=== PATIENT | female | born 1955 | race Caucasian/White ===

== ENCOUNTER 2023-09-21 12:58 | Outpatient (CLI) | payer MEDICARE, BC ==
--- NOTE | 2023-09-23 07:55 | Mammography Report ---
BILATERAL DIGITAL SCREENING MAMMOGRAM 3D/2D: 09/21/2023 CLINICAL: Routine screening. Comparison is made to exams dated: 05/19/2022 mammogram, 07/10/2020 mammogram, and 03/17/2017 mammogram - [facility]. Both breasts are heterogeneously dense, which may obscure small masses (category c / 51-75% glandular tissue). No significant masses, calcifications, or other findings are seen in either breast. There has been no significant interval change. IMPRESSION: NEGATIVE There is no mammographic evidence of malignancy. A 1 year screening mammogram is recommended. Based on the Tyrer Cuzick model (a risk assessment model) the patient's lifetime risk is 8.8% and her 10 year risk is 5.2%. According to the ACR, ACS, and NCCN guidelines, an annual breast MRI exam kendra g with mammogram is recommended if the patient's lifetime risk is 20% or greater. This exam was interpreted at Station ID: [id number]. NOTE: For mammograms, a report in lay terms will be sent to the patient. Approximately 15% of breast malignancies will not be visualized mammographically. In the management of a palpable breast mass, a negative mammogram must not discourage biopsy of a clinically suspicious lesion. Electronically Signed By: Carlos chamorro/lars:09/22/2023 14:24:30 letter sent: No_Letter ACR BI-RADS Category 1: Negative 3341F PARENCHYMAL PATTERN: (D) - The breast(s) demonstrate(s) heterogeneously dense fibroglandular beto menchaca. BI-RADS CATEGORY: (1) - 1 RECOMMENDATION: (ANNUAL) - Recommend routine annual screening mammography. [id number] 1 year screening LATERALITY: (B)
== END 2023-09-21 12:59 | disposition home or self-care (01) ==
LOC: DI.S 12:58
DX: Z12.31 Encounter for screening mammogram for malignant neoplasm of breast (principal); R92.333 Mammographic heterogeneous density, bilateral breasts

== ENCOUNTER 2023-10-08 12:34 | Outpatient (CLI) | payer MEDICARE, BC ==
--- NOTE | 2023-10-08 14:07 | DEXA Report ---
PROCEDURE: Dexa Spine and/or Hip INDICATIONS: OSTEOPOROSIS TECHNIQUE: Dual energy x-ray absorptiometry (DEXA) was performed in the regions detailed below. COMPARISON: None. FINDINGS: Lumbar Spine: Bone Mineral Density 0.879 g/cm/cm,T score -2.5. Osteoporosis Left Femoral Neck: Bone Mineral Density 0.712 g/cm/cm, T score -2.3. Osteopenia Left Total Hip: Bone Mineral Density 0.780 g/cm/cm,T score -1.8. Osteopenia (T score greater or equal to -1.0: NORMAL) (T score from -1.1 to -2.4: OSTEOPENIA) (T score less than or equal to -2.5 to: OSTEOPOROSIS) IMPRESSION: Osteoporosis Patients with diagnosis of osteoporosis or osteopenia should have regular bone mineral density assess ment. For those eligible for Medicare, routine testing is allowed once every 2 years. Testing frequ ency can be increased for patients who have rapidly progressing disease or for those who are receivin g medical therapy to restore bone mass. Reviewed by: Rogers Vang MD on 10/08/2023 1:05 PM STANISLAV Approved by: Rogers Vang MD on 10/08/2023 1:05 PM STANISLAV Station ID: [id number]
== END 2023-10-08 12:35 | disposition home or self-care (01) ==
LOC: DI 12:34
PROVIDERS: ATTEND Family Medicine
DX: M81.0 Age-related osteoporosis without current pathological fracture (principal)

== ENCOUNTER 2023-10-27 15:07 | Emergency (ER) | payer MEDICARE, BC ==
--- NOTE | 2023-10-27 16:27 | ED Physician Documentation ---
History of Present Illness - Stated complaint Stated Complaint: BAT EXPOSURE/POSS BAT BITE - Chief complaint Chief Complaint: General - History obtained from History obtained from: Patient - History of Present Illness Timing: Today Pain level max: 0 Pain level now: 0 - Additonal information Additional information: Patient is a 68-year-old female who states that yesterday she awoke with a bat in her bedroom. It flew out the window. She is unsure if she was bit or not. She contacted [facility] who recommended she come here for rabies vaccine and rabies immunoglobulin. Patient is asymptomatic. 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 : None HEENT: None Psych: Anxiety Musculoskeletal: Osteoarthritis, Chronic back pain Derm: None - Past Surgical History Past Surgical History: Yes /CELLARS SUPERVISOR: Dilation and currettage HEENT: Tonsil/Adenoidectomy - Present Medications Home Medications: Ambulatory Orders Medication Instructions Recorded Confirmed Levothyroxine Sodium 75 mcg PO DAILY 10/27/23 Liothyronine [Cytomel] 5 mcg PO DAILY 10/27/23 - Allergies Allergies/Adverse Reactions: Allergies Allergy/AdvReac Type Severity Reaction Status Date / Time codeine AdvReac Nausea Verified 10/27/23 15:17 morphine AdvReac Nausea Verified 10/27/23 15:17 - Social History Does the pt smoke?: No Smoking Status: Never smoker Does the pt drink ETOH?: Yes Does the pt have substance abuse?: No - Immunizations Immunizations are current?: Yes - POLST Patient has POLST: No PD ED PE NORMAL - Vitals Vital signs reviewed: Yes - General General: Alert and oriented X 3, No acute distress - HEENT HEENT: Moist mucous membranes - Neck Neck: Supple, no meningeal sign - Cardiac Cardiac: RRR - Respiratory Respiratory: No respiratory distress, Clear bilaterally - Derm Derm: Warm and dry - Neuro Neuro: Alert and oriented X 3 Results - Vitals Vitals: Vital Signs - 24 hr 10/27/23 10/27/23 15:17 15:51 Temperature 36.7 C Heart Rate 72 Respiratory 16 16 Rate Blood Pressure 114/59 L O2 Saturation 98 Oxygen O2 Source Room air PD Medical Decision Making - ED course Complexity details: considered differential, d/w patient ED course: Patient with a bat exposure, recommended rabies vaccination by [facility]. Therefore immunoglobulin and the vaccine series was started. Patient will follow-up with her PCP for the remainder of the series. Information given about this. She will return to the ER if she is unable to get follow-up with her doctor. Patient counseled regarding signs and symptoms for which I believe and urgent re-evaluation would be necessary. Patient with good understanding of and agreement to plan and is comfortable going home at this time This document was made in part using voice recognition software. While efforts are made to proofread this document, sound alike and grammatical errors may occur. Departure - Departure Disposition: 01 Home, Self Care Clinical Impression: Exposure to bat without known bite Condition: Good Instructions: Rabies Vaccine Series Instructions Follow-Up: Johana Clay MD [Primary Care Provider] - Comments: Please follow-up with your doctor for further care. As we discussed you were given rabies immunoglobulin and your first rabies vaccination today. You will need additional vaccines on day 3, day 7 and day 14. I have provided instructions on how to arrange this. The location of the next vaccinations will depend on your insurance and insurance benefits, this may be covered under a pharmacy benefit or a medical benefit. Forms: PCP List
[2023-10-27] MEDS: RABIES IMMUNE GLOBULIN 300 UNITS/2 ML IM STA (16:34)
[2023-10-27] MEDS: RABIES VACCINE 2.5 UNIT SYRINGE IM ONE (16:35)
[2023-10-27 17:03] VITALS: BP 151/88; O2SAT 100
== END 2023-10-27 17:12 | disposition home or self-care (01) ==
LOC: ED 15:07
DX: Z20.3 Contact with and (suspected) exposure to rabies (principal); Z23 Encounter for immunization; E03.9 Hypothyroidism, unspecified
CPT/HCPCS: 90471; 96372; 99283

== ENCOUNTER 2023-11-03 13:10 | Emergency (ER) | payer MEDICARE, BC ==
[2023-11-03 13:26] VITALS: BP 138/77; O2SAT 100
--- NOTE | 2023-11-03 13:28 | ED Physician Documentation ---
History of Present Illness - Stated complaint Stated Complaint: RABIES VACCINE - Chief complaint Chief Complaint: General - History obtained from History obtained from: Patient - Additonal information Additional information: The patient returns to the ED for her day 7 rabies vaccine dose after a bat exposure a week ago. She states other than a sore arm she has not noticed any unusual symptoms and otherwise feels fine. She states she was able to get her day 3 rabies vaccine up in [place]. 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 : None HEENT: None Psych: Anxiety Musculoskeletal: Osteoarthritis, Chronic back pain Derm: None - Past Surgical History Past Surgical History: Yes /HISTORICAL SITE GUIDE: Dilation and currettage HEENT: Tonsil/Adenoidectomy - Present Medications Home Medications: Ambulatory Orders Medication Instructions Recorded Confirmed Levothyroxine Sodium 75 mcg PO DAILY 10/27/23 Liothyronine [Cytomel] 5 mcg PO DAILY 10/27/23 - Allergies Allergies/Adverse Reactions: Allergies Allergy/AdvReac Type Severity Reaction Status Date / Time codeine AdvReac Nausea Verified 11/03/23 13:23 morphine AdvReac Nausea Verified 11/03/23 13:23 - Social History Does the pt smoke?: No Smoking Status: Never smoker Does the pt drink ETOH?: Yes Does the pt have substance abuse?: No - Immunizations Immunizations are current?: Yes - POLST Patient has POLST: No PD ED PE NORMAL - Vitals Vital signs reviewed: Yes - General General: Alert and oriented X 3, No acute distress, Well developed/nourished - HEENT HEENT: Atraumatic, EOMI, Moist mucous membranes - Neck Neck: Supple, no meningeal sign - Cardiac Cardiac: RRR, No murmur, Strong equal pulses - Respiratory Respiratory: No respiratory distress, Clear bilaterally - Derm Derm: Normal color, Warm and dry, No rash - Extremities Extremities: No deformity - Neuro Neuro: Other (Alert and grossly intact) - Psych Psych: Normal mood, Normal affect Results - Vitals Vitals: Vital Signs - 24 hr 11/03/23 13:15 Temperature 36.6 C Heart Rate 60 Respiratory 16 Rate Blood Pressure 138/77 H O2 Saturation 100 Oxygen O2 Source Room air PD Medical Decision Making - ED course Complexity details: considered differential, d/w patient ED course: The patient was given her dose of rabies vaccine. She is advised to come back for 1 more dose in a week which will be her final dose. Departure - Departure Disposition: 01 Home, Self Care Clinical Impression: Exposure to bat without known bite Condition: Stable Instructions: Rabies Vaccine Series Instructions Comments: You have received your day 7 dose of rabies vaccine today. This is your third dose and you have 1 more to go which will be on day 14 or 1 week from today.
[2023-11-03] MEDS: RABIES VACCINE 2.5 UNIT SYRINGE IM ONE (13:31)
== END 2023-11-03 13:44 | disposition home or self-care (01) ==
LOC: ED 13:10
DX: Z20.3 Contact with and (suspected) exposure to rabies (principal); Z23 Encounter for immunization; E03.9 Hypothyroidism, unspecified
CPT/HCPCS: 90471

== ENCOUNTER 2023-11-10 12:44 | Emergency (ER) | payer MEDICARE, BC ==
--- NOTE | 2023-11-10 12:52 | ED Physician Documentation ---
History of Present Illness - Stated complaint Stated Complaint: RABIES SHOT - History obtained from History obtained from: Patient - Additonal information Additional information: She had a bat exposure a couple of weeks ago and is here today for her fourth and final rabies vaccine having already received 3 vaccines and immunoglobulin. She has no specific complaints. 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 and currettage HEENT: Tonsil/Adenoidectomy - Present Medications Home Medications: Ambulatory Orders Medication Instructions Recorded Confirmed Levothyroxine Sodium 75 mcg PO DAILY 10/27/23 Liothyronine [Cytomel] 5 mcg PO DAILY 10/27/23 - Allergies Allergies/Adverse Reactions: Allergies Allergy/AdvReac Type Severity Reaction Status Date / Time codeine AdvReac Nausea Verified 11/10/23 12:49 morphine AdvReac Nausea Verified 11/10/23 12:49 - Social History Does the pt smoke?: No Smoking Status: Never smoker Does the pt drink ETOH?: Yes Does the pt have substance abuse?: No - Immunizations Immunizations are current?: Yes - POLST Patient has POLST: No PD ED PE NORMAL - Vitals Vital signs reviewed: Yes - General General: Alert and oriented X 3, No acute distress - Neuro Neuro: Alert and oriented X 3 - Psych Psych: Normal mood, Normal affect Results - Vitals Vitals: Oxygen O2 Source Room air Departure - Departure Disposition: 01 Home, Self Care Clinical Impression: Exposure to bat without known bite Condition: Good Record reviewed to determine appropriate education?: Yes Instructions: Rabies Vaccine suspension for injection Comments: Today you received your fourth and final rabies vaccine. You are fully immunized but would need a booster for another bat exposure.
[2023-11-10] MEDS: RABIES VACCINE 2.5 UNIT SYRINGE IM ONE (12:53)
[2023-11-10 13:14] VITALS: BP 164/104; O2SAT 99
== END 2023-11-10 13:03 | disposition home or self-care (01) ==
LOC: ED 12:44
DX: Z20.3 Contact with and (suspected) exposure to rabies (principal); Z23 Encounter for immunization
CPT/HCPCS: 90471